=== PATIENT | female | born 1980 | race Caucasian/White ===

== ENCOUNTER 2020-05-13 16:42 | Emergency (ER) | payer MEDICAID ==
[~2020-05-13] VITALS: Ht 147.3 cm; Wt 77.1 kg
[2020-05-13 16:46] VITALS: BP 111/64; Ht 147.3 cm; Wt 77.1 kg
== END 2020-05-13 18:17 | disposition home or self-care (01) ==
LOC: ED 16:42
DX: U07.1 COVID-19 (principal)
CPT/HCPCS: U0003